=== PATIENT | female | born 2000 | race African-American/Black ===

== ENCOUNTER 2021-12-13 12:15 | Emergency (ER) | payer OTHER ==
[2021-12-13 12:15] VITALS: BP 136/70
[2021-12-13] MEDS ORDERED: IV NORMAL SALINE 1000ML BAG 1,000 ML IV ONE (12:30)
[2021-12-13 12:42] LABS: BASO % 1 % (0-3); EOS # 0.1 x10^3/uL (0.0-0.7); EOS % 2 % (0-3); HEMATOCRIT 35.9 % (36.0-47.0); HEMOGLOBIN 12.3 g/dL (12.0-15.5); LYMPH # 2.6 x10^3/uL (1.0-4.8); LYMPH % 50 % (24-48); MEAN CORPUSCULAR HEMOGLOBIN 29 pg (25-35); MEAN CORPUSCULAR HGB CONC 34 g/dL (31-37); MEAN CORPUSCULAR VOLUME 85 fL (79-100); MONO # 0.7 x10^3/uL (0.0-1.1); MONO % 13 % (0-9); NEUT # 1.8 x10^3/uL (1.8-7.7); NEUT % 34 % (31-73); PLATELET COUNT 208 x10^3/uL (140-400); RED BLOOD COUNT 4.24 x10^6/uL (3.50-5.40); RED CELL DISTRIBUTION WIDTH 12.5 % (11.5-14.5); WHITE BLOOD COUNT 5.2 x10^3/uL (4.0-11.0)
[2021-12-13 12:50] LABS: U PREG PATIENT NEGATIVE (NEG)
[2021-12-13 12:52] LABS: PROTHROMBIN TIME PATIENT 14.5 SEC (11.7-14.0)
[2021-12-13 12:53] LABS: BACTERIA,URINE FEW /HPF (0-FEW); BARBITURATES NEG (NEG); BENZODIAZEPINES NEG (NEG); CANNABINOIDS NEG (NEG); COCAINE NEG (NEG); METHADONE NEG (NEG); OPIATES NEG (NEG); PHENCYCLIDINE NEG (NEG); RBC,URINE 0 /HPF (0-2)
[2021-12-13 12:53] LABS: CALCIUM 8.6 mg/dL (8.5-10.1); CREATININE 0.6 mg/dL (0.6-1.0); POTASSIUM 3.9 mmol/L (3.5-5.1)
[2021-12-13 12:54] LABS: AMPHETAMINE/METHAMPHETAMINE NEG (NEG)
[2021-12-13 12:59] LABS: ALBUMIN 3.3 g/dL (3.4-5.0); ALBUMIN/GLOBULIN RATIO 0.9 (1.0-1.7); TOTAL BILIRUBIN 0.5 mg/dL (0.2-1.0); TOTAL PROTEIN 6.8 g/dL (6.4-8.2)
[2021-12-13 13:00] LABS: ACETAMIN < 2 mcg/ml (10-30); SALIC < 0.2 mg/dL (2.8-20.0)
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
--- NOTE | 2021-12-13 13:53 | EKG ---
[facility] [address] [place] [address] Test Date: 2021-12-13 Test Time: 12:24:20 Pat Name: LETY DAVIS Department: Room: Gender: F [employer] App[employer]ice: : 2000 Requested By: AMAN Macdonald Number: [id number] Reading MD: Rohit Etienne Measurements Intervals [place] Rate: 82 P: 28 MT: 134 QRS: 38 QRSD: 84 T: 26 QT: 368 QTc: 433 Interpretive Statements SINUS RHYTHM ATRIAL PREMATURE COMPLEX(ES) Electronically Signed On 12-14-2021 10:03:31 CDT by Rohit Etienne
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
[2021-12-13] MEDS ORDERED: IOHEXOL 300 MG/ML 100ML VIAL. IV ONE (15:00)
[2021-12-13] MEDS ORDERED: CONTRAST GIVEN. MC PRN (15:00)
--- NOTE | 2021-12-13 15:39 | RAD ---
CT chest with contrast: History: Cardiac contusion Axial helical images of the chest were obtained after the administration of 100 cc of Isovue 370 IV c ontrast. Comparison: none Findings: The lungs and pleural margins are clear. The thoracic aorta appears normal. There is no mediastinal l ymphadenopathy or hematoma. There is no hilar lymphadenopathy. Impression: No acute findings. End Impression PQRS Compliance Statement: One or more of the following individualized dose reduction techniques were utilized for this examinat ion: 1. Automated exposure control 2. Adjustment of the mA and/or kV according to patient size 3. Use of iterative reconstruction technique Electronically signed by: Alexei Gallo III, MD (12/13/2021 3:37 PM) [facility]
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
== END 2021-12-13 15:42 | disposition home or self-care (01) ==
LOC: ER 12:15
DX: S80.12XA Contusion of left lower leg, initial encounter (principal); S26.91XA Contusion of heart, unspecified with or without hemopericardium, initial encounter; M54.2 Cervicalgia; Z91.012 Allergy to eggs; Z88.8 Allergy status to other drugs, medicaments and biological substances; V49.88XA Car occupant (driver) (passenger) injured in other specified transport accidents, initial encounter; Y92.488 Other paved roadways as the place of occurrence of the external cause; Y93.89 Activity, other specified; Y99.8 Other external cause status
CPT/HCPCS: 36415; 71045; 71260; 72125; 73562; 73610; 80053; 80307; 80329; 81001; 81025; 83690; 84484; 85025; 85610; 85730; 93005; 99285; G0480; Q9967